=== PATIENT | female | born 1995 | race Caucasian/White ===

== ENCOUNTER 2017-12-07 19:28 | Emergency (ER) ==
[2017-12-07 19:57] LABS: CONTROL LINE UCG INT CTR LINE PRESENT; URINE PREG TEST NEGATIVE (NEGATIVE)
[2017-12-07 19:59] LABS: KETONE, URINE AUTO RFX NEGATIVE (NEGATIVE); LEUKOCYTE ESTERASE UR AUTO RFX NEGATIVE (NEGATIVE); MUCUS, URINE RFX SMALL (NEGATIVE); NITRITE, URINE AUTO RFX NEGATIVE (NEGATIVE); RBC, URINE AUTO RFX 1 /HPF (0-3); SPECIFIC GRAVITY UR AUTO RFX 1.023 (1.002-1.035); SQUAM EPITHELIAL CELL UR AURFX 1 /HPF (0-6); WBC, URINE AUTO RFX 1 /HPF (0-3)
== END 2017-12-07 22:00 | disposition left against medical advice (07) ==
LOC: M ED 19:28
DX: R10.2 Pelvic and perineal pain (principal); Z53.21 Procedure and treatment not carried out due to patient leaving prior to being seen by health care provider

== ENCOUNTER 2022-08-14 14:56 | Emergency (ER) | payer MEDICAID, OTHER, SELFPAY ==
[~2022-08-14] VITALS: Ht 157.5 cm; Wt 111.7 kg
[2022-08-14] MEDS ORDERED: CYCL-707 PO (17:14)
[2022-08-14] MEDS ORDERED: IBUPROFEN 600MG TAB PO ONE (17:15)
[2022-08-14 17:18] VITALS: BP 131/88
== END 2022-08-14 17:29 | disposition home or self-care (01) ==
LOC: M ED 14:56
DX: S46.011A Strain of muscle(s) and tendon(s) of the rotator cuff of right shoulder, initial encounter (principal); W00.0XXA Fall on same level due to ice and snow, initial encounter; Y92.481 Parking lot as the place of occurrence of the external cause; Y99.0 Civilian activity done for income or pay; F32.9 Major depressive disorder, single episode, unspecified; E66.9 Obesity, unspecified; Z91.018 Allergy to other foods; Z88.5 Allergy status to narcotic agent

== ENCOUNTER 2022-10-13 22:11 | Emergency (ER) | payer MEDICAID ==
[~2022-10-13] VITALS: Ht 160 cm; Wt 115.6 kg
[~2022-10-13 22:11] MED LIST: CYCL-707 PO
[2022-10-13 23:17] LABS: BASO # 0.1 10^3/uL (0.0-0.2); BASO % 0.6 % (0.0-1.0); EOS # 0.3 10^3/uL (0.0-0.5); EOS % 2.4 % (0.0-3.0); HEMATOCRIT 38.8 % (36.0-47.0); HEMOGLOBIN 12.9 g/dl (12.0-15.5); LYMPH # 2.8 10^3/uL (1.5-5.0); LYMPH % 26.4 % (24.0-44.0); MEAN CORPUSCULAR HEMOGLOBIN 28.7 pg (27.0-33.0); MEAN CORPUSCULAR HGB CONC 33.2 g/dl (32.0-36.5); MEAN CORPUSCULAR VOLUME 86.2 fl (80.0-96.0); MONO # 0.7 10^3/uL (0.0-0.8); MONO % 6.4 % (2.0-8.0); NEUTROPHILS # 6.8 10^3/uL (1.5-8.5); NEUTROPHILS % 63.8 % (36.0-66.0); PLATELET COUNT, AUTOMATED 397 10^3/uL (150-450); WHITE BLOOD COUNT 10.7 10^3/uL (4.0-10.0)
[2022-10-13 23:47] LABS: LIPASE 43 U/L (12-53)
[2022-10-13 23:50] LABS: ALBUMIN 3.8 G/DL (3.2-5.2); ALKALINE PHOSPHATASE 67 U/L (46-116); ALT/SGPT 174 U/L (7.0-40); AST/SGOT 76 U/L (<34); BILIRUBIN,DIRECT < 0.1 MG/DL (<0.4); BILIRUBIN,TOTAL 0.3 MG/DL (0.3-1.2); BLOOD UREA NITROGEN 12 MG/DL (9-23); CALCIUM LEVEL 9.6 MG/DL (8.5-10.1); CARBON DIOXIDE LEVEL 23 MMOL/L (20-31); CHLORIDE LEVEL 105 MMOL/L (98-107); CREATININE FOR GFR 0.55 MG/DL (0.55-1.30); GLOMERULAR FILTRATION RATE > 60.0 (>60); GLUCOSE, FASTING 115 MG/DL (60-100); POTASSIUM SERUM 3.9 MMOL/L (3.5-5.1); SODIUM LEVEL 137 MMOL/L (136-145); TOTAL PROTEIN 6.9 G/DL (5.7-8.2)
[2022-10-14 00:09] LABS: HCG, SERUM QUANTITATIVE 12615.7 MIU/ML (<4.2)
[2022-10-14 03:30] VITALS: BP 126/66
[2022-10-14] MEDS ORDERED: CEFDINIR 300 MG CAP (OMNICEF) PO ONE (04:10)
[2022-10-14] MEDS ORDERED: CEFP200T PO (04:11)
== END 2022-10-14 04:38 | disposition home or self-care (01) ==
LOC: M ED 22:11
DX: R10.31 Right lower quadrant pain (principal)

== ENCOUNTER 2022-10-20 18:59 | Emergency (ER) | payer MEDICAID ==
[~2022-10-20 18:59] MED LIST changes: +CEFP200T PO
[2022-10-21] MEDS ORDERED: ONDANSETRON 4MG TAB PO ONE (00:55)
[2022-10-21] MEDS ORDERED: NS 1,000 ML IV ONE (03:00)
[2022-10-21] MEDS ORDERED: METOCLOPRAMIDE INJ 10MG/2ML VIAL IV ONE (03:00)
[2022-10-21] MEDS ORDERED: diphenhydrAMINE 50MG/ML VIAL IV ONE (03:00)
[2022-10-21] MEDS ORDERED: ACETAMINOPHEN 1000MG 100ML IV BAG IV ONE (03:00)
[2022-10-21] MEDS ORDERED: REGL10TA6 PO (05:29)
[2022-10-21 05:30] VITALS: BP 112/55
== END 2022-10-21 05:43 | disposition home or self-care (01) ==
LOC: M ED 18:59
DX: O21.1 Hyperemesis gravidarum with metabolic disturbance (principal); Z3A.09 9 weeks gestation of pregnancy
CPT/HCPCS: 87486; 87581; 87633; 87798; 96374; 96375; 99284; J0131; J1200; J2765

== ENCOUNTER → 2022-11-09 | Outpatient (REF) | payer OTHER ==
[~2022-11-09] MED LIST changes: +REGL10TA6 PO
== END ==
LOC: M PLALAB 15:06
PROVIDERS: ATTEND Advanced Practice Midwife
DX: Z34.01 Encounter for supervision of normal first pregnancy, first trimester (principal); Z53.9 Procedure and treatment not carried out, unspecified reason

== ENCOUNTER → 2022-11-23 | Outpatient (CLI) | payer OTHER ==
[2022-11-23 15:44] LABS: HEMATOCRIT 39.2 % (36.0-47.0); HEMOGLOBIN 13.3 g/dl (12.0-15.5); MEAN CORPUSCULAR HEMOGLOBIN 29.6 pg (27.0-33.0); MEAN CORPUSCULAR HGB CONC 33.9 g/dl (32.0-36.5); MEAN CORPUSCULAR VOLUME 87.1 fl (80.0-96.0); PLATELET COUNT, AUTOMATED 400 10^3/uL (150-450); WHITE BLOOD COUNT 9.6 10^3/uL (4.0-10.0)
[2022-11-23 16:16] LABS: HIV 1&2 SCREEN CENTAUR NEGATIVE (NEGATIVE)
[2022-11-23 17:36] LABS: GC DNA AMPLIFICATION NEGATIVE (NEGATIVE)
== END ==
LOC: M PLALAB 13:30
PROVIDERS: ATTEND Advanced Practice Midwife
DX: Z34.81 Encounter for supervision of other normal pregnancy, first trimester (principal)

== ENCOUNTER → 2022-12-10 | Outpatient (CLI) | payer OTHER | LOC: M PLALAB 15:36 | PROVIDERS: ATTEND Advanced Practice Midwife | DX: Z34.92 Encounter for supervision of normal pregnancy, unspecified, second trimester (principal) ==

== ENCOUNTER → 2023-01-29 | Outpatient (CLI) | payer OTHER | LOC: M WHC 13:14 | PROVIDERS: ATTEND Advanced Practice Midwife | DX: Z34.82 Encounter for supervision of other normal pregnancy, second trimester (principal) ==

== ENCOUNTER → 2023-03-04 | Outpatient (CLI) | payer OTHER ==
[~2023-03-04] MED LIST changes: +ACET-897 PO; +ONDA-83 PO; +PRENTAB9 PO
== END ==
LOC: M WHC 12:50
PROVIDERS: ATTEND Obstetrics & Gynecology
DX: Z36.2 Encounter for other antenatal screening follow-up (principal)

== ENCOUNTER 2023-03-11 13:13 | Outpatient (CLI) | payer OTHER ==
[~2023-03-11] VITALS: Ht 160 cm; Wt 117.3 kg
[2023-03-11 13:36] VITALS: BP 113/72
[2023-03-11] MEDS ORDERED: HOME MED LIST COMPLETE! XX SCH (14:05)
[2023-03-11 14:17] VITALS: BP 118/70
[2023-03-11 14:38] VITALS: BP 108/59
== END 2023-03-11 15:00 | disposition home or self-care (01) ==
LOC: M LDO 13:13
PROVIDERS: ATTEND Specialist
DX: O26.892 Other specified pregnancy related conditions, second trimester (principal); R42 Dizziness and giddiness; Z3A.26 26 weeks gestation of pregnancy
CPT/HCPCS: 59025; G0463

== ENCOUNTER → 2023-03-16 | Outpatient (CLI) | payer OTHER ==
[2023-03-16 15:57] LABS: HEMATOCRIT 32.2 % (36.0-47.0); HEMOGLOBIN 10.7 g/dl (12.0-15.5); MEAN CORPUSCULAR HEMOGLOBIN 28.4 pg (27.0-33.0); MEAN CORPUSCULAR HGB CONC 33.2 g/dl (32.0-36.5); MEAN CORPUSCULAR VOLUME 85.4 fl (80.0-96.0); PLATELET COUNT, AUTOMATED 370 10^3/uL (150-450); RED BLOOD COUNT 3.77 10^6/uL (4.00-5.40)
[2023-03-16 17:19] LABS: GC DNA AMPLIFICATION NEGATIVE (NEGATIVE)
== END ==
LOC: M PLALAB 12:51
PROVIDERS: ATTEND Obstetrics & Gynecology
DX: Z34.92 Encounter for supervision of normal pregnancy, unspecified, second trimester (principal)

== ENCOUNTER → 2023-05-12 | Outpatient (REF) | payer OTHER ==
[~2023-05-12] MED LIST changes: +COLA100C5 PO; +IBUP1TAB7 PO; +IBUP80TA PO; +LABE100T71 PO; +PERCOCET PO
== END ==
LOC: M SFHCWAGY 13:05
PROVIDERS: ATTEND Obstetrics & Gynecology
DX: Z34.83 Encounter for supervision of other normal pregnancy, third trimester (principal)

== ENCOUNTER 2023-05-19 17:23 | Outpatient (CLI) | payer OTHER ==
[~2023-05-19] VITALS: Ht 160 cm; Wt 123.9 kg
[~2023-05-19 17:23] MED LIST changes: -COLA100C5 PO; -IBUP1TAB7 PO; -IBUP80TA PO; -LABE100T71 PO; -PERCOCET PO
[2023-05-19] MEDS ORDERED: HOME MED LIST COMPLETE! XX SCH (17:40)
[2023-05-19 17:41] VITALS: BP 116/70
== END 2023-05-19 18:39 | disposition home or self-care (01) ==
LOC: M LDO 17:23
PROVIDERS: ATTEND Advanced Practice Midwife
DX: O36.8130 Decreased fetal movements, third trimester, not applicable or unspecified (principal); O09.293 Supervision of pregnancy with other poor reproductive or obstetric history, third trimester; O36.63X0 Maternal care for excessive fetal growth, third trimester, not applicable or unspecified; O99.213 Obesity complicating pregnancy, third trimester; E66.1 Drug-induced obesity; O99.343 Other mental disorders complicating pregnancy, third trimester; F41.8 Other specified anxiety disorders; Z3A.36 36 weeks gestation of pregnancy
CPT/HCPCS: 59025; G0463

== ENCOUNTER → 2023-05-24 | Outpatient (CLI) | payer OTHER | LOC: M WHC 08:42 | PROVIDERS: ATTEND Obstetrics & Gynecology | DX: O36.60X0 Maternal care for excessive fetal growth, unspecified trimester, not applicable or unspecified (principal); Z3A.00 Weeks of gestation of pregnancy not specified ==

== ENCOUNTER → 2023-05-26 | Outpatient (CLI) | payer OTHER ==
[~2023-05-26] MED LIST changes: +COLA100C5 PO; +IBUP80TA PO; +PERCOCET PO
[2023-05-26 16:08] LABS: HEMATOCRIT 32.7 % (36.0-47.0); HEMOGLOBIN 10.5 g/dl (12.0-15.5); MEAN CORPUSCULAR HEMOGLOBIN 24.5 pg (27.0-33.0); MEAN CORPUSCULAR HGB CONC 32.1 g/dl (32.0-36.5); MEAN CORPUSCULAR VOLUME 76.2 fl (80.0-96.0); PLATELET COUNT, AUTOMATED 317 10^3/uL (150-450); RED BLOOD COUNT 4.29 10^6/uL (4.00-5.40); WHITE BLOOD COUNT 8.6 10^3/uL (4.0-10.0)
[2023-05-26 16:36] LABS: TOTAL PROTEIN,RANDOM URINE 93.1 MG/DL (0.0-14.0)
[2023-05-26 16:38] LABS: URIC ACID 5.1 MG/DL (3.1-7.8)
[2023-05-26 16:40] LABS: LDH LACTATE DEHYDROGENASE 202 U/L (120-246)
[2023-05-26 16:41] LABS: ALT/SGPT 24 U/L (7.0-40); AST/SGOT 27 U/L (<34); BILIRUBIN,TOTAL 0.3 MG/DL (0.3-1.2); CREATININE FOR GFR 0.64 MG/DL (0.55-1.30); GLOMERULAR FILTRATION RATE > 60.0 (>60)
[2023-05-26 16:53] LABS: CREATININE,RANDOM URINE 244.6 MG/DL
== END ==
LOC: M PLALAB 12:20
PROVIDERS: ATTEND Advanced Practice Midwife
DX: Z34.83 Encounter for supervision of other normal pregnancy, third trimester (principal)

== ENCOUNTER 2023-05-27 19:12 | Inpatient (IN) | payer OTHER ==
[~2023-05-27] VITALS: Ht 160 cm; Wt 126.1 kg
[~2023-05-27 19:12] MED LIST changes: -COLA100C5 PO; -IBUP80TA PO; -PERCOCET PO
[2023-05-27 19:55] VITALS: BP 122/83
[2023-05-27 20:03] VITALS: BP 125/84
[2023-05-27 20:25] LABS: HEMATOCRIT 32.8 % (36.0-47.0); HEMOGLOBIN 10.7 g/dl (12.0-15.5); MEAN CORPUSCULAR HEMOGLOBIN 24.4 pg (27.0-33.0); MEAN CORPUSCULAR HGB CONC 32.6 g/dl (32.0-36.5); MEAN CORPUSCULAR VOLUME 74.7 fl (80.0-96.0); PLATELET COUNT, AUTOMATED 327 10^3/uL (150-450); RED BLOOD COUNT 4.39 10^6/uL (4.00-5.40); WHITE BLOOD COUNT 9.9 10^3/uL (4.0-10.0)
[2023-05-27 20:26] VITALS: BP 122/85
[2023-05-27] MEDS ORDERED: BICITRA 30ML SOLN UDC PO ONE (20:40)
[2023-05-27] MEDS ORDERED: CARBOPROST TROMETHAMINE 250 MCG/ML AMP IM PRN (20:40)
[2023-05-27] MEDS ORDERED: ceFAZolin SOD 3 GM IV Place Holder IV ONE (20:40)
[2023-05-27] MEDS ORDERED: LR 1,000 ML IV SCH ×3 (20:40→22:50)
[2023-05-27] MEDS ORDERED: TRANEXAMIC ACID INJection 1,000 MG in NS 100 ML IV PRN (20:40)
[2023-05-27] MEDS ORDERED: KETOROLAC 60MG 2ML VIAL As Ordered ONE (20:47)
[2023-05-27] MEDS ORDERED: OXYTOCIN INJ 10UNITS/ML 1ML VIAL As Ordered ONE (20:47)
[2023-05-27] MEDS ORDERED: ONDANSETRON 4MG 2ML VIAL As Ordered ONE (20:47)
[2023-05-27] MEDS ORDERED: fentaNYL 100 MCG/2 ML INJECTION As Ordered ONE (20:51)
[2023-05-27] MEDS ORDERED: MORPHINE PRES-FREE INJ 10 MG/10 ML VIAL As Ordered ONE (20:51)
[2023-05-27] MEDS ORDERED: ceFAZolin SOD 2 GM in IV 1 EA IV ONE (21:00)
[2023-05-27] MEDS ORDERED: ceFAZolin SOD 1 GM in D5W MINI-BAG PLUS 50 ML IV ONE (21:00)
[2023-05-27] MEDS ORDERED: PHENYLephrine 500MCG 5ML (100MCG/ML) SYRINGE As Ordered ONE (22:29)
[2023-05-27] MEDS ORDERED: ePHEDrine SULFATE 25 MG/5 ML(5MG/ML) SYRINGE As Ordered ONE (22:29)
[2023-05-27] MEDS ORDERED: RHOGAM 300MCG (1500IU) INJ IM SCH (22:45)
[2023-05-27] MEDS ORDERED: OXYTOCIN DRIP 30 UNITS in IV 1 EA IV SCH (22:45)
[2023-05-27] MEDS ORDERED: SIMETHICONE 80MG CHEW TAB PO PRN (22:45)
[2023-05-27] MEDS ORDERED: MOM 30ML SUSPENSION UDC PO PRN (22:45)
[2023-05-27] MEDS ORDERED: PERCOCET 5MG/325MG TAB PO PRN ×2 (22:45→22:50)
[2023-05-27] MEDS ORDERED: METOCLOPRAMIDE INJ 10MG/2ML VIAL IV PRN (22:50)
[2023-05-27] MEDS ORDERED: ONDANSETRON 4MG 2ML VIAL IV PRN (22:50)
[2023-05-27] MEDS ORDERED: fentaNYL 100 MCG/2 ML INJECTION IV PRN (22:50)
[2023-05-27] MEDS ORDERED: diphenhydrAMINE 50MG/ML VIAL IV PRN (22:50)
[2023-05-27] MEDS ORDERED: NALOXONE INJ 0.4MG/1ML VIAL IV PRN ×2 (22:50)
[2023-05-27] MEDS ORDERED: **NOTE PATIENT COMMENT** MISC XX SCH (22:50)
[2023-05-27] MEDS ORDERED: PERCOCET PO (22:57)
[2023-05-27] MEDS ORDERED: IBUP80TA PO (22:57)
[2023-05-27] MEDS ORDERED: COLA100C5 PO (22:57)
[2023-05-27] MEDS ORDERED: LOPERAMIDE 2 MG CAPLET PO PRN (23:10)
[2023-05-27] MEDS ORDERED: CARBOPROST TROMETHAMINE 250 MCG/ML AMP IM ONE (23:10)
[2023-05-27] MEDS ORDERED: OXYTOCIN 30UNITS IN 0.9% NaCl 500ML IV BAG As Ordered ONE ×2 (23:28→23:57)
[2023-05-28] VITALS (10 sets, daily range): BP systolic 108–133; BP diastolic 57–94; TEMP 96.5; O2SAT 96–100
[2023-05-28] MEDS: KETOROLAC 30 MG/ML 1ML VIAL IV SCH ×3 (02:03→15:17)
[2023-05-28 06:00] LABS: HEMATOCRIT 24.1 % (36.0-47.0); MEAN CORPUSCULAR HEMOGLOBIN 24.5 pg (27.0-33.0); MEAN CORPUSCULAR HGB CONC 32.4 g/dl (32.0-36.5); MEAN CORPUSCULAR VOLUME 75.8 fl (80.0-96.0); PLATELET COUNT, AUTOMATED 281 10^3/uL (150-450); RED BLOOD COUNT 3.18 10^6/uL (4.00-5.40); WHITE BLOOD COUNT 14.5 10^3/uL (4.0-10.0)
[2023-05-28 06:07] LABS: HEMOGLOBIN 7.8 g/dl (12.0-15.5)
[2023-05-28] MEDS: DOCUSATE SODIUM 100MG CAPSULE PO SCH ×2 (08:08→20:10)
[2023-05-28] MEDS: ENOXAPARIN 30MG/0.3ML SYRINGE (J1650 PER 10MG) SC SCH ×2 (08:08→20:09)
[2023-05-28] MEDS: PRENATAL VITAMINS CHEWABLE TABLET PO SCH (08:08)
[2023-05-28] MEDS ORDERED: ENOXAPARIN 30MG/0.3ML SYRINGE (J1650 PER 10MG) SC SCH (09:00)
[2023-05-28] MEDS: SLF 3 ML SYR IV SCH (15:15)
[2023-05-28] MEDS: IBUPROFEN 800 MG TAB PO SCH (23:26)
[2023-05-29 02:00] VITALS: BP 120/57; O2SAT 97
[2023-05-29 06:00] VITALS: BP 128/73; O2SAT 98
[2023-05-29] MEDS: IBUPROFEN 800 MG TAB PO SCH ×3 (06:04→23:00)
[2023-05-29] MEDS: PRENATAL VITAMINS CHEWABLE TABLET PO SCH (07:45)
[2023-05-29] MEDS: PERCOCET 5MG/325MG TAB PO PRN ×3 (07:46→21:32)
[2023-05-29] MEDS: DOCUSATE SODIUM 100MG CAPSULE PO SCH ×2 (07:47→21:30)
[2023-05-29] MEDS ORDERED: MEASLES,MUMPS,RUBELLA VACCINE INJ (MMR-II) SC.IMMUN ONE (09:00)
[2023-05-29] MEDS: ENOXAPARIN 30MG/0.3ML SYRINGE (J1650 PER 10MG) SC SCH ×2 (09:24→21:31)
[2023-05-29 10:00] VITALS: BP 122/81; O2SAT 99
[2023-05-29] MEDS: FERROUS SULFATE 325MG TAB PO SCH ×2 (12:14→21:30)
[2023-05-29 14:00] VITALS: BP 133/72; O2SAT 98
[2023-05-29 18:03] VITALS: BP 122/69; O2SAT 98
[2023-05-30] MEDS: PERCOCET 5MG/325MG TAB PO PRN ×2 (04:17→10:06)
[2023-05-30 05:51] VITALS: BP_SYST 128; BP_SYST 152; BP_DIAS 81; O2SAT 97
[2023-05-30] MEDS: IBUPROFEN 800 MG TAB PO SCH (06:29)
[2023-05-30] MEDS: PRENATAL VITAMINS CHEWABLE TABLET PO SCH (09:02)
[2023-05-30] MEDS: FERROUS SULFATE 325MG TAB PO SCH (09:02)
[2023-05-30] MEDS: DOCUSATE SODIUM 100MG CAPSULE PO SCH (09:02)
[2023-05-30] MEDS: ENOXAPARIN 30MG/0.3ML SYRINGE (J1650 PER 10MG) SC SCH (09:03)
== END 2023-05-30 12:27 | disposition home or self-care (01) | DRG 540 ==
LOC: M LDI 19:12 → M OBS 05-28 01:39
PROVIDERS: ADMIT Obstetrics & Gynecology; ATTEND Obstetrics & Gynecology
PROC: 10D00Z1 Extraction of Products of Conception, Low, Open Approach (ICD-10-PCS; principal; 2023-05-27 21:30)
DX: O36.63X0 Maternal care for excessive fetal growth, third trimester, not applicable or unspecified (principal); O99.824 Streptococcus B carrier state complicating childbirth; Z3A.37 37 weeks gestation of pregnancy; O14.94 Unspecified pre-eclampsia, complicating childbirth; Z88.0 Allergy status to penicillin; Z88.5 Allergy status to narcotic agent; Z91.018 Allergy to other foods; Z37.0 Single live birth

== ENCOUNTER 2023-06-03 12:14 | Observation (INO) | payer MEDICAID, OTHER ==
[~2023-06-03] VITALS: Ht 160 cm; Wt 119.8 kg
[~2023-06-03 12:14] MED LIST changes: +COLA100C5 PO; +IBUP80TA PO; +PERCOCET PO
[2023-06-03] MEDS ORDERED: LABETALOL 100MG/20ML VIAL IV ONE (14:45)
[2023-06-03 15:00] LABS: BASO % 0.4 % (0.0-1.0); EOS # 0.2 10^3/uL (0.0-0.5); EOS % 1.8 % (0.0-3.0); HEMATOCRIT 24.6 % (36.0-47.0); HEMOGLOBIN 7.5 g/dl (12.0-15.5); LYMPH # 1.6 10^3/uL (1.5-5.0); LYMPH % 16.5 % (24.0-44.0); MEAN CORPUSCULAR HGB CONC 30.5 g/dl (32.0-36.5); MEAN CORPUSCULAR VOLUME 78.8 fl (80.0-96.0); MONO # 0.6 10^3/uL (0.0-0.8); MONO % 6.4 % (2.0-8.0); NEUTROPHILS % 72.6 % (36.0-66.0); PLATELET COUNT, AUTOMATED 462 10^3/uL (150-450); RED BLOOD COUNT 3.12 10^6/uL (4.00-5.40); WHITE BLOOD COUNT 9.6 10^3/uL (4.0-10.0)
[2023-06-03 15:12] LABS: INR 1.06; PARTIAL THROMBOPLASTIN TIME 26.5 SECONDS (24.8-34.2); PROTHROMBIN TIME 13.5 SECONDS (12.5-14.5)
[2023-06-03 15:23] LABS: URIC ACID 5.6 MG/DL (3.1-7.8)
[2023-06-03 15:26] LABS: ALBUMIN 2.5 G/DL (3.2-5.2); ALKALINE PHOSPHATASE 233 U/L (46-116); ALT/SGPT 60 U/L (7.0-40); AST/SGOT 53 U/L (<34); BILIRUBIN,DIRECT 0.1 MG/DL (<0.4); BILIRUBIN,TOTAL 0.3 MG/DL (0.3-1.2); BLOOD UREA NITROGEN 11 MG/DL (9-23); CALCIUM LEVEL 8.9 MG/DL (8.5-10.1); CARBON DIOXIDE LEVEL 25 MMOL/L (20-31); CHLORIDE LEVEL 107 MMOL/L (98-107); CREATININE FOR GFR 0.76 MG/DL (0.55-1.30); GLOMERULAR FILTRATION RATE > 60.0 (>60); GLUCOSE, FASTING 85 MG/DL (60-100); MAGNESIUM LEVEL 1.9 MG/DL (1.8-2.4); POTASSIUM SERUM 4.1 MMOL/L (3.5-5.1); SODIUM LEVEL 143 MMOL/L (136-145); TOTAL PROTEIN 6.6 G/DL (5.7-8.2)
[2023-06-03 15:31] LABS: CK-MB VALUE MASS < 1.0 NG/ML (<3.6)
[2023-06-03 15:32] LABS: CPK CREATINE PHOSPHOKINASE 77 U/L (34-145); MB/CK RELATIVE INDEX 1.29 (< OR =4)
[2023-06-03] MEDS ORDERED: ACETAMINOPHEN 500 MG TAB PO ONE (15:50)
[2023-06-03 16:27] LABS: LDH LACTATE DEHYDROGENASE 280 U/L (120-246)
[2023-06-03] MEDS ORDERED: KETOROLAC 30 MG/ML 1ML VIAL IV ONE (17:20)
[2023-06-03] MEDS ORDERED: DOCUSATE SODIUM 100MG CAPSULE PO PRN (17:30)
[2023-06-03] MEDS ORDERED: ACETAMINOPHEN 500 MG TAB PO PRN (17:30)
[2023-06-03] MEDS ORDERED: ACETAMINOPHEN TAB 650MG DOSE (2X325MG) PO PRN (17:30)
[2023-06-03] MEDS ORDERED: IBUPROFEN 600MG TAB PO PRN (17:30)
[2023-06-03] MEDS ORDERED: MED REC IN PROGRESS XX SCH (17:45)
[2023-06-03] MEDS ORDERED: COLA100C5 PO (17:52)
[2023-06-03] MEDS ORDERED: IBUP1TAB7 PO (17:54)
[2023-06-03] MEDS ORDERED: PERCOCET PO (17:56)
[2023-06-03] MEDS ORDERED: HOME MED LIST COMPLETE! XX SCH (18:00)
[2023-06-03 21:00] VITALS: BP 131/76; TEMP 97.9; O2SAT 98
[2023-06-03 21:49] VITALS: BP 142/75; TEMP 97.3; O2SAT 100
[2023-06-03 22:04] VITALS: BP 144/77; TEMP 97.1; O2SAT 100
[2023-06-03 22:49] VITALS: BP 143/78; TEMP 97.3; O2SAT 98
[2023-06-03 23:49] VITALS: BP 148/80; TEMP 98; O2SAT 98
[2023-06-04] VITALS (12 sets, daily range): BP systolic 134–157; BP diastolic 71–92; TEMP 97.2–99.2; O2SAT 95–100
[2023-06-04] MEDS: IBUPROFEN 800 MG TAB PO PRN ×2 (00:59→09:44)
[2023-06-04 03:41] LABS: HEMATOCRIT 27.2 % (36.0-47.0); HEMOGLOBIN 8.6 g/dl (12.0-15.5); MEAN CORPUSCULAR HEMOGLOBIN 24.9 pg (27.0-33.0); MEAN CORPUSCULAR HGB CONC 31.6 g/dl (32.0-36.5); MEAN CORPUSCULAR VOLUME 78.8 fl (80.0-96.0); PLATELET COUNT, AUTOMATED 431 10^3/uL (150-450); RED BLOOD COUNT 3.45 10^6/uL (4.00-5.40); WHITE BLOOD COUNT 10.7 10^3/uL (4.0-10.0)
[2023-06-04] MEDS ORDERED: FERROUS SULFATE 325MG TAB PO SCH (09:00)
[2023-06-04] MEDS ORDERED: PRENATAL VITAMINS CHEWABLE TABLET PO SCH (09:00)
[2023-06-04] MEDS ORDERED: LABE100T71 PO (10:06)
[2023-06-04 10:54] LABS: HEMATOCRIT 29.4 % (36.0-47.0); HEMOGLOBIN 9.4 g/dl (12.0-15.5); MEAN CORPUSCULAR HEMOGLOBIN 25.2 pg (27.0-33.0); MEAN CORPUSCULAR VOLUME 78.8 fl (80.0-96.0); PLATELET COUNT, AUTOMATED 437 10^3/uL (150-450); RED BLOOD COUNT 3.73 10^6/uL (4.00-5.40)
[2023-06-04] MEDS ORDERED: LABETALOL 100MG TAB PO ONE (12:00)
[2023-06-05] MEDS ORDERED: MEASLES,MUMPS,RUBELLA VACCINE INJ (MMR-II) SC.IMMUN ONE (09:00)
== END 2023-06-04 12:40 | disposition home or self-care (01) ==
LOC: M ED 12:14 → M ED INP 19:04 → M PED 20:00
PROVIDERS: ADMIT Obstetrics & Gynecology; ATTEND Obstetrics & Gynecology
DX: O90.81 Anemia of the puerperium (principal); O13.5 Gestational [pregnancy-induced] hypertension without significant proteinuria, complicating the puerperium
CPT/HCPCS: 36415; 36430; 80048; 80076; 82550; 82553; 83615; 83735; 83880; 84550; 85025; 85027; 85384; 85610; 85730; 86850; 86900; 86901; 86920; 87486; 87581; 87633; 87798; 93005; 93041; 94760; 96374; 96375; 99285; J1885; J1920; P9016

== ENCOUNTER → 2023-06-07 | Outpatient (REF) | payer OTHER ==
[~2023-06-07] MED LIST changes: +IBUP1TAB7 PO; +LABE100T71 PO
== END ==
LOC: M SFHCWAGY 15:22
PROVIDERS: ATTEND Specialist
DX: R19.7 Diarrhea, unspecified (principal)

== ENCOUNTER → 2023-10-13 | Outpatient (REF) | payer OTHER ==
[~2023-10-13] MED LIST changes: +LABE100T40 PO; -LABE100T71 PO
== END ==
LOC: M SFHCWAGY 13:21
PROVIDERS: ATTEND Obstetrics & Gynecology
DX: N76.0 Acute vaginitis (principal)

== ENCOUNTER → 2024-02-09 | Outpatient (CLI) | payer OTHER | LOC: M WHC 13:36 | PROVIDERS: ATTEND Obstetrics & Gynecology | DX: N63.0 Unspecified lump in unspecified breast (principal) ==

== ENCOUNTER 2024-09-28 13:15 | Emergency (ER) | payer OTHER ==
[~2024-09-28] VITALS: Ht 160 cm; Wt 126.6 kg
[2024-09-28 14:08] LABS: BASO # 0.1 10^3/uL (0.0-0.2); BASO % 0.8 % (0.0-1.0); EOS # 0.2 10^3/uL (0.0-0.5); EOS % 1.8 % (0.0-3.0); HEMATOCRIT 41.1 % (36.0-47.0); HEMOGLOBIN 13.6 g/dl (12.0-15.5); LYMPH # 2.7 10^3/uL (1.5-5.0); LYMPH % 31.4 % (24.0-44.0); MEAN CORPUSCULAR HEMOGLOBIN 28.7 pg (27.0-33.0); MEAN CORPUSCULAR HGB CONC 33.1 g/dl (32.0-36.5); MEAN CORPUSCULAR VOLUME 86.7 fl (80.0-96.0); MONO # 0.4 10^3/uL (0.0-0.8); MONO % 4.7 % (2.0-8.0); NEUTROPHILS # 5.3 10^3/uL (1.5-8.5); NEUTROPHILS % 61.1 % (36.0-66.0); PLATELET COUNT, AUTOMATED 422 10^3/uL (150-450); RED BLOOD COUNT 4.74 10^6/uL (4.00-5.40); WHITE BLOOD COUNT 8.7 10^3/uL (4.0-10.0)
[2024-09-28 14:32] LABS: KETONE, URINE AUTO RFX NEGATIVE (NEGATIVE); MUCUS, URINE RFX SMALL (NEGATIVE); NITRITE, URINE AUTO RFX NEGATIVE (NEGATIVE); RBC, URINE AUTO RFX 6 /HPF (0-3); SQUAM EPITHELIAL CELL UR AURFX 12 /HPF (0-6); WBC, URINE AUTO RFX 5 /HPF (0-3)
[2024-09-28 14:36] LABS: BILIRUBIN,DIRECT 0.2 MG/DL (<0.4); BILIRUBIN,TOTAL 0.6 MG/DL (0.3-1.2); TOTAL PROTEIN 7.7 G/DL (5.7-8.2)
[2024-09-28 14:36] LABS: LEUKOCYTE ESTERASE UR AUTO RFX 3+ (NEGATIVE)
[2024-09-28] MEDS: KETOROLAC 30 MG/ML 1ML VIAL IV ONE (16:50)
[2024-09-28] MEDS ORDERED: ISOVUE-370 76% 100ML VIAL As Ordered ONE (16:50)
[2024-09-28] MEDS ORDERED: CIPR250T26 PO (17:38)
[2024-09-28 17:46] VITALS: BP 123/80; TEMP 98.1; O2SAT 98
== END 2024-09-28 17:48 | disposition home or self-care (01) ==
LOC: M ED 13:15
DX: R10.9 Unspecified abdominal pain (principal); N39.0 Urinary tract infection, site not specified; F41.9 Anxiety disorder, unspecified; F32.A Depression, unspecified; F43.10 Post-traumatic stress disorder, unspecified; Z88.0 Allergy status to penicillin; Z88.5 Allergy status to narcotic agent; Z91.018 Allergy to other foods; Z79.2 Long term (current) use of antibiotics
CPT/HCPCS: 74177; 80047; 80076; 81001; 83690; 84702; 85025; 87086; 96374; 99284; J1885; Q9967

== ENCOUNTER → 2024-11-01 | Outpatient (CLI) | payer OTHER ==
[~2024-11-01] MED LIST changes: +CIPR250T26 PO
== END ==
LOC: M WUC 13:33
PROVIDERS: ATTEND Physician Assistant Medical
DX: M54.50 Low back pain, unspecified (principal)

== ENCOUNTER → 2024-11-15 | Outpatient (CLI) | payer OTHER | LOC: M PLAIMG 11:46 | PROVIDERS: ATTEND Student in an Organized Health Care Education/Training Program | DX: M54.50 Low back pain, unspecified (principal); M47.816 Spondylosis without myelopathy or radiculopathy, lumbar region; M47.817 Spondylosis without myelopathy or radiculopathy, lumbosacral region ==

== ENCOUNTER → 2025-02-09 | Outpatient (REF) | payer OTHER ==
[2025-02-09 17:44] LABS: IRON (FE) 93 UG/DL (50-170)
[2025-02-09 17:47] LABS: ALT/SGPT 207 U/L (7.0-40); AST/SGOT 158 U/L (<34); CALCIUM LEVEL 8.9 MG/DL (8.5-10.1); CARBON DIOXIDE LEVEL 25 MMOL/L (20-31); CHLORIDE LEVEL 101 MMOL/L (98-107); CHOLESTEROL LEVEL 252 MG/DL (<200); CHOLESTEROL RISK RATIO 5.81 (<5); CREATININE FOR GFR 0.69 MG/DL (0.55-1.30); GLOMERULAR FILTRATION RATE > 90.0 (>60); LDL CHOLESTEROL 162.5 MG/DL (<100); NON-HDL-C 208.7 MG/DL; POTASSIUM SERUM 4.2 MMOL/L (3.5-5.1); SODIUM LEVEL 140 MMOL/L (136-145); TRIGLYCERIDES LEVEL 231 MG/DL (<150)
[2025-02-09 18:05] LABS: PLATELET COUNT, AUTOMATED 416 10^3/uL (150-450)
[2025-02-09 18:13] LABS: ESTIMATED AVERAGE GLUCOSE 128.0 MG/DL (60-110)
== END ==
LOC: M LAB REF 16:29
PROVIDERS: ATTEND Student in an Organized Health Care Education/Training Program
DX: D64.9 Anemia, unspecified (principal); E66.01 Morbid (severe) obesity due to excess calories

== ENCOUNTER → 2025-02-13 | Outpatient (REF) | payer OTHER ==
[2025-02-13 17:38] LABS: FREE T4 1.16 NG/DL (0.89-1.76)
[2025-02-13 17:41] LABS: THYROID PEROXIDASE ANTIBODY 67 U/ML (<60.0)
[2025-02-13 18:12] LABS: HEPATITIS C VIRUS ABY INDEX < 0.02 INDEX (<0.8)
[2025-02-13 18:18] LABS: THYROGLOBULIN ANTIBODY > 500.0 U/ML (<60.0)
== END ==
LOC: M LAB REF 16:31
PROVIDERS: ATTEND Student in an Organized Health Care Education/Training Program
DX: R74.8 Abnormal levels of other serum enzymes (principal); R79.89 Other specified abnormal findings of blood chemistry

== ENCOUNTER 2025-03-19 23:55 | Emergency (ER) | payer OTHER ==
[~2025-03-19] VITALS: Ht 157.5 cm; Wt 132.4 kg
[2025-03-20 04:04] LABS: PLATELET COUNT, AUTOMATED 414 10^3/uL (150-450)
[2025-03-20] MEDS: LIDOCAINE 2% W/EPINEPHrine 20 ML VIAL **PRES FREE INJ ONE (05:36)
[2025-03-20] MEDS ORDERED: ANUS2.5C2 TOP (05:38)
[2025-03-20 05:54] VITALS: BP 145/74; TEMP 98.2; O2SAT 98
== END 2025-03-20 05:56 | disposition home or self-care (01) ==
LOC: M ED 23:55
DX: K64.5 Perianal venous thrombosis (principal); Z88.0 Allergy status to penicillin; Z88.5 Allergy status to narcotic agent; Z91.018 Allergy to other foods; Z79.2 Long term (current) use of antibiotics; Z79.899 Other long term (current) drug therapy

== ENCOUNTER → 2025-03-20 | Outpatient (CLI) | payer OTHER ==
[~2025-03-20] MED LIST changes: +ANUS2.5C2 TOP
== END ==
LOC: M RAD 13:15
PROVIDERS: ATTEND Student in an Organized Health Care Education/Training Program
DX: R74.8 Abnormal levels of other serum enzymes (principal); K76.0 Fatty (change of) liver, not elsewhere classified; R16.0 Hepatomegaly, not elsewhere classified

== ENCOUNTER → 2025-04-05 | Outpatient (CLI) | payer OTHER | LOC: M RAD 12:02 | PROVIDERS: ATTEND Surgery | DX: R10.11 Right upper quadrant pain (principal) | CPT/HCPCS: 78227; A9537 ==

== ENCOUNTER → 2025-04-10 | Outpatient (REF) | payer OTHER | LOC: M LAB REF 17:07 | PROVIDERS: ATTEND Student in an Organized Health Care Education/Training Program | DX: R79.89 Other specified abnormal findings of blood chemistry (principal) ==

== ENCOUNTER → 2025-04-20 | Outpatient (CLI) | payer OTHER | LOC: M WHC 15:00 | PROVIDERS: ATTEND Student in an Organized Health Care Education/Training Program | DX: R79.89 Other specified abnormal findings of blood chemistry (principal) ==